=== PATIENT | male | born 1960 | race Caucasian/White ===

== ENCOUNTER 2023-05-19 12:46 | Outpatient (AMB) | payer MEDICARE, MEDICAID, SELFPAY ==
--- NOTE | 2023-05-19 13:01 | HO.SPINEOV ---
Intake Intake Visit Reasons: low back pain Intake Note: Mr. Khan is here today c/o low back pain. MRI done @ [facility]/brought disc. 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 He is a pleasant 62-year-old male, who presents for symmetric / bilateral leg pain accompanied by numbness, tingling, and burning originating in his low back, wrapping around his anterior thigh, continuing over the knee and terminating on the anterior tibialias, sparing the feet. He states that he injured his back when he was in the [place] 20 years ago, and reports low-grade pain up until the last several years where his pain and radicular symptoms have began limiting activity. He reports he has tried Tylenol, ibuprofen, healthcare business analyst, cortisone injections, exercise and stretching with minimal relief. He reports that walking for extended periods of time, bending over and lifting, and nearly all forms of manual labor exacerbate his symptoms. He is established at [facility] for pain management, and has scheduled cortisone injections at the end of this month. PMH: Rheumatoid arthritis, neuropathy, depression. Social hx: Patient smokes 1/2 pack cigarettes daily. No disclosed substance use. Medications: folic acid, omeprazole. Allergies: NKDA Physical exam: CN II-XII grossly intact. Strength is full and symmetric 5/5 in bilateral upper and lower extremities. Sensation is grossly intact. Reflexes 2+ intact in upper and lower extremities. Babinski negative, straight leg raise negative. Patient is able to perform spine flexion, extension, lateral rotation but has reduced mobility and does elicit pain when performing these actions. He also endorses a dull aching pain when standing walking. Imaging review: Imaging reviewed with Dr. Carter. MRI shows lumbar degenerative scoliosis with apex at L3-4. Severe degenerative multilevel disc disease from L3-S1. Multilevel severe foraminal stenosis, moderate central canal stenosis. Standing x-rays show that decreased lordosis and confirms the MRI findings. Impression: The patient is a 62-year-old male with a chief complaint of low back pain and radicular symptoms in an L3-4 distribution. He states that he is at the point where he feels severely restricted, and is unable to accomplish many of the things which give him purpose. After reviewing the imaging Dr. Carter offered him an OLIF L3-S1 to minimally invasively correct the scoliosis and to indirectly decompress the nerve structures. We discussed risks/benefits, and the patient was agreeable to this plan. We will need to coordinate with vascular surgery and schedule him for surgical date. Thank you for allowing us to care for your patient. The total time spent with this visit with this patient was 65 minutes reviewing history, physical exam, MRI / X-ray imaging review, scheduling surgical dates / coordination, and implementation of treatment plan or further diagnostic testing. Darin Carter MD,PhD [facility] Orders: Orders XR lumbar spine 4V min Today M54.16 - Radiculopathy, lumbar region Coding Level of Care Code New Pt Level 5 (37579) Diagnoses Lumbar radiculopathy M54.16 Time Spent (min) 65
== END 2023-05-19 14:30 | disposition home or self-care (01) ==
PROVIDERS: PCP Internal Medicine; Referring Provider Physical Medicine & Rehabilitation; Visit Provider Neurological Surgery
DX: M54.16 Radiculopathy, lumbar region (principal)
CPT/HCPCS: 99205

== ENCOUNTER 2023-05-19 12:46 | Outpatient (REF) | payer MEDICARE, MEDICAID, SELFPAY ==
--- NOTE | ~2023-05-19 | XR_ITS ---
EXAMINATION: XR LUMBOSACRAL SPINE WITH FLEXION AND EXTENSION VIEWS CLINICAL INFORMATION: Radiculopathy, lumbar region COMPARISON: None available. TECHNIQUE: AP, lateral and lateral flexion and extension views were obtained FINDINGS: There is mild curve of the lumbar spine, convex left. There are 5 nonrib-bearing lumbar-type vertebral bodies. There is slight right lateral compression of the L3 vertebral body. There is marked disc space narrowing with vacuum phenomenon at L2-L3 and L5-S1. There is also marked disc space narrowing at L3-L4 and L4-L5. Marginal osteophytes are seen throughout L2-L5. There is a large right lateral marginal osteophyte at L2-L3. There is multilevel degenerative facet joint disease, most notable at L4-L5 and L5-S1. There is loss of the usual lumbar lordosis which can be seen with muscle spasm. There is no spondylolisthesis. There is very limited flexion and extension. There is no change in alignment with flexion and extension. Partial visualization of bilateral total hip replacements. XR/XR lumbar spine 4V min IMPRESSION: 1. Muscle spasm. 2. Severe multilevel degenerative disc disease and degenerative facet joint disease. 3. No evidence of instability with flexion and extension. 4. Mild curve of the lumbar spine, convex left.
== END 2023-05-19 12:47 | disposition home or self-care (01) ==
LOC: HO.HOSX 12:46
PROVIDERS: PCP Internal Medicine; Visit Provider Neurological Surgery
DX: M54.16 Radiculopathy, lumbar region (principal)
CPT/HCPCS: 72110; 99202

== ENCOUNTER 2023-09-20 06:04 | Inpatient (IN) | payer MEDICARE, MEDICAID, SELFPAY ==
--- NOTE | 2023-09-08 | ECG_ITS ---
Test Reason : preop Blood Pressure : / mmHG Vent. Rate : 057 BPM Atrial Rate : 057 BPM P-R Int : 136 ms QRS Dur : 096 ms QT Int : 424 ms P-R-T Axes : 060 038 057 degrees QTc Int : 412 ms Sinus bradycardia Otherwise normal ECG No previous ECGs available Referred By: Serena Arroyo Electronically Signed By:JOAN VAZQUEZ MD
[2023-09-08 12:09] VITALS: BP 137/75; PULSE 58; RESP 18; O2SAT 98; BMI 26.0
[2023-09-08 13:24] LABS: Hematocrit 42.6 % (42.0-52.0); Hemoglobin 14.3 g/dl (14.0-18.0); Mean Corpuscular HGB Conc 33.6 g/dl (31.0-36.0); Mean Corpuscular Hemoglobin 28.9 pg (27.0-33.0); Mean Corpuscular Volume 86.1 fL (80.0-98.0); Mean Platelet Volume 9.4 fL (9.4-12.4); Platelet Count 277 X10*3/uL (160-400); Red Blood Count 4.95 X10*6/uL (4.60-5.80); Red Cell Distribution Width 12.8 % (11.0-16.0); White Blood Count 5.3 X10*3/uL (4.8-10.8)
[2023-09-08 13:56] LABS: Anion Gap 9 (12-20); Blood Urea Nitrogen 12 mg/dL (9-16); Calcium 9.1 mg/dL (8.4-10.2); Carbon Dioxide 30 mmol/L (22-29); Chloride 104 mmol/L (96-108); Creatinine Clr Calc Pharmacy 83.9; Estimated Glomerular Filt Rate > 60; Glucose Random 83 mg/dL (60-115); Potassium 3.6 mmol/L (3.3-5.1); Sodium 139 mmol/L (135-145)
[2023-09-20] VITALS (22 sets, daily range): BP systolic 118–154; BP diastolic 67–104; PULSE 54–86; RESP 10–20; TEMP 36.7–37.2; O2SAT 91–99; BMI 26.3
--- NOTE | ~2023-09-20 | FL_ITS ---
EXAMINATION: Intraoperative fluoroscopy CLINICAL INFORMATION: L3-S1 fusion COMPARISON: Lumbar spine x-rays May 19, 2023 TECHNIQUE: Intraoperative fluoroscopy was provided for use by Dr. Carter. A total of 9 images were saved to PACS. A radiologist was not present during imaging. Today's dictation is only for administrative purposes to document intraoperative fluoroscopic usage. TOTAL FLUOROSCOPIC TIME: 3 minutes and 30 seconds DAP: 412 mGy-cm FL/FL guidance in OR FINDINGS~\^^ Intraoperative fluoroscopy provided for use by Dr. Carter. Please see operative note for detailed findings.
[2023-09-20] MEDS: Gabapentin 300 MG CAPSULE PO (06:25)
[2023-09-20] MEDS: methocarbamoL 750 MG TABLET PO (06:25)
[2023-09-20] MEDS: Lactated Ringers 1,000 ML 100 ML IVCONT (06:33)
--- NOTE | 2023-09-20 07:15 | HO.ANESPROP2 ---
Documented by User: Serena Arroyo NP 09/17/23 08:52 HPI - Anesthesia Eval Consult details Narrative: 62yo M for L3-4, L4-5,L5-S1 Oblique Lumbar Interbody Fusion No recent illness No CP/SOB with minimal acitivity r/t back pain. Able to do some raking, grocery shopping Smoker. Down to 5 cigs/day GERD. Controlled with prn ppi. PMFSH Active Problems Active Problems: All Active Problems (Updated 09/08/23 @ 12:04 by Aubree Magallon RN) Lumbar radiculopathy (Acute) Past Medical History Medical History Arthritis Anemia GERD (gastroesophageal reflux disease) Smoking history Depression Rheumatoid arthritis Degenerative disc disease, lumbar Lumbar spinal stenosis Myalgia Lumbar radiculopathy Family History Family history of problems with anesthesia: No Surgical History Surgical History History of esophagogastroduodenoscopy (EGD) H/O colonoscopy Hx of bilateral hip replacements History of Problems with Anesthesia: No Social History Social History (Updated 09/07/23 @ 10:36 by Aubree Magallon RN) Are you a primary child adolescent care to a significant other at home: No Do you presently have visiting nurse or other home services: No Patient Tobacco Use Status: Current everyday Tobacco user Tobacco use type: Cigarette Cigarettes Per Day: 5 Years Smoked: 52 Use of substances other than those prescribed or required for medical reasons: No Have you been hit, kicked, punched, or otherwise hurt by someone within the past year? If so, by whom?: No Are you DNR?: No Advance Directives Information Provided: Yes (brochure given) Advance Directives on File: No Recently lost weight without trying: No Eating poorly because of decreased appetite: No Nutrition Risks: No Nutritional Risk Poor oral hygiene: Yes (full upper & lower dentures) Meds Allergies Allergy/AdvReac Type Severity Reaction Status Date / Time No Known Allergies Allergy Verified 09/20/23 06:12 Home Medications Medication Instructions Recorded Confirmed Last Taken Type acetaminophen 500 mg tablet 1,000 mg PO QID PRN Pain 09/08/23 09/08/23 Unknown History ascorbic acid (vitamin C) 500 mg 500 mg PO DAILY 09/08/23 09/08/23 09/06/23 History tablet (Vitamin C) ferrous sulfate 325 mg (65 mg 325 mg PO DAILY 09/08/23 09/08/23 09/06/23 History iron) tablet multivitamin 1 tab PO DAILY 09/08/23 09/08/23 09/06/23 History omeprazole 20 mg capsule,delayed 20 mg PO DAILY PRN Acid Reflux 09/08/23 09/08/23 09/20/23 05:00 History release tadalafil 5 mg tablet 5 mg PO DAILY PRN Erectile 09/08/23 09/08/23 Unknown History Dysfunction vitamin B complex 1 tab PO DAILY 09/08/23 09/08/23 09/06/23 History Exam Height,Weight and Vital Signs: Height 5 ft 8 in Weight 77.428 kg Last Vital Signs Pulse 58 09/08/23 12:09 Resp 18 09/08/23 12:09 BP 137/75 09/08/23 12:09 Pulse Ox 98 09/08/23 12:09 O2 Del Method Room Air 09/08/23 12:09 Pertinent Lab Results Pertinent Lab Results: Lab Results 09/08/23 09/08/23 09/08/23 Range/Units 12:22 12:58 Unknown WBC 5.3 (4.8-10.8) X10*3/uL RBC 4.95 (4.60-5.80) X10*6/uL Hgb 14.3 (14.0-18.0) g/dl Hct 42.6 (42.0-52.0) % MCV 86.1 (80.0-98.0) fL MCH 28.9 (27.0-33.0) pg MCHC 33.6 (31.0-36.0) g/dl RDW 12.8 (11.0-16.0) % Plt Count 277 (160-400) X10*3/uL MPV 9.4 (9.4-12.4) fL Absolute Nucleated RBC 0.000 (0.0-0.012) X10*3/uL Nucleated RBC % (auto) 0.0 (0.0-0.2) /100WBC Sodium 139 (135-145) mmol/L Potassium 3.6 (3.3-5.1) mmol/L Chloride 104 (96-108) mmol/L Carbon Dioxide 30 H (22-29) mmol/L Anion Gap 9 L (12-20) BUN 12 (9-16) mg/dL Creatinine 0.86 (0.5-1.4) mg/dL Estim Creat Clear Calc 83.9 Estimated GFR > 60 Random Glucose 83 (60-115) mg/dL Calcium 9.1 (8.4-10.2) mg/dL Blood Type B Positive Antibody Screen NEGATIVE Narrative Narrative: EKG 06/2023 Vent. Rate : 057 BPM Atrial Rate : 057 BPM P-R Int : 136 ms QRS Dur : 096 ms QT Int : 424 ms P-R-T Axes : 060 038 057 degrees QTc Int : 412 ms Sinus bradycardia Otherwise normal ECG No previous ECGs available Airway Mallampati Class: II TM Dist: >3cm Neck ROM: Full Denture: Upper and Lower Heart: RRR Lungs: CTAB Assessment and Plan Assessment Anesthesia Assessment: Anesthesia Plan Discussed, Smoking Cess. Discussed and PAT Visit Final Anesthetic Review Family History of Problems with Anesthesia: No History of Problems with Anesthesia: No Documented by User: Piedad Crowley DO 09/20/23 07:20 [facility] Past Medical History Medical History Arthritis Anemia GERD (gastroesophageal reflux disease) Smoking history Depression Rheumatoid arthritis Degenerative disc disease, lumbar Lumbar spinal stenosis Myalgia Lumbar radiculopathy Family History Family history of problems with anesthesia: No Surgical History Surgical History History of esophagogastroduodenoscopy (EGD) H/O colonoscopy Hx of bilateral hip replacements History of Problems with Anesthesia: No Social History Social History (Updated 09/07/23 @ 10:36 by Aubree Magallon RN) Are you a primary child adolescent care to a significant other at home: No Do you presently have visiting nurse or other home services: No Patient Tobacco Use Status: Current everyday Tobacco user Tobacco use type: Cigarette Cigarettes Per Day: 5 Years Smoked: 52 Use of substances other than those prescribed or required for medical reasons: No Have you been hit, kicked, punched, or otherwise hurt by someone within the past year? If so, by whom?: No Are you DNR?: No Advance Directives Information Provided: Yes (brochure given) Advance Directives on File: No Recently lost weight without trying: No Eating poorly because of decreased appetite: No Nutrition Risks: No Nutritional Risk Poor oral hygiene: Yes (full upper & lower dentures) Meds Allergies Allergy/AdvReac Type Severity Reaction Status Date / Time No Known Allergies Allergy Verified 09/20/23 06:12 Home Medications Medication Instructions Recorded Confirmed Last Taken Type acetaminophen 500 mg tablet 1,000 mg PO QID PRN Pain 09/08/23 09/08/23 Unknown History ascorbic acid (vitamin C) 500 mg 500 mg PO DAILY 09/08/23 09/08/23 09/06/23 History tablet (Vitamin C) ferrous sulfate 325 mg (65 mg 325 mg PO DAILY 09/08/23 09/08/23 09/06/23 History iron) tablet multivitamin 1 tab PO DAILY 09/08/23 09/08/23 09/06/23 History omeprazole 20 mg capsule,delayed 20 mg PO DAILY PRN Acid Reflux 09/08/23 09/08/23 09/20/23 05:00 History release tadalafil 5 mg tablet 5 mg PO DAILY PRN Erectile 09/08/23 09/08/23 Unknown History Dysfunction vitamin B complex 1 tab PO DAILY 09/08/23 09/08/23 09/06/23 History Exam Exam Date and Time: September 20, 2023 0715 Height,Weight and Vital Signs: Height 5 ft 8 in Weight 77.428 kg Last Vital Signs Pulse 58 09/08/23 12:09 Resp 18 09/08/23 12:09 BP 137/75 09/08/23 12:09 Pulse Ox 98 09/08/23 12:09 O2 Del Method Room Air 09/08/23 12:09 Vital Signs Pulse Rate 58 09/08/23 12:09 Respiratory Rate 18 09/08/23 12:09 Blood Pressure 137/75 09/08/23 12:09 Pulse Oximetry 98 09/08/23 12:09 Oxygen Delivery Method Room Air 09/08/23 12:09 Temperature 98.7 F 09/20/23 06:27 Pulse Rate 54 09/20/23 06:27 Respiratory Rate 16 09/20/23 06:27 Blood Pressure 118/67 09/20/23 06:27 Pulse Oximetry 97 09/20/23 06:27 Oxygen Delivery Method Room Air 09/20/23 06:27 Height 5 ft 8 in Weight 78.381 kg Airway Mallampati Class: II TM Dist: >3cm Neck ROM: Full Denture: Upper and Lower Heart: S1S2 Assessment and Plan Assessment Anesthesia Assessment: Anesthesia Plan Discussed and Chart Reviewed Final Anesthetic Review Family History of Problems with Anesthesia: No History of Problems with Anesthesia: No NPO: Yes ASA Class: II Final Preanesthetic Review: No Changes in Pt Med Stat, Meds/Allgs Chart Reviewed, Consent Obtained/Reviewed and Anes Risks/Benef Reviewed Patient Risk: Low Procedure Risk: Low Anesthetic Plan Anesthetic Plan: GA and Agree w/ Assess. and Plan Disposition: Standard PACU
--- NOTE | 2023-09-20 07:25 | PHA.MEDREC ---
Pharmacy Consult ? Medication Reconciliation Pharmacy has completed the medication reconciliation. PHARMACY HAS REVIEWED THE MED REC DONE BY NURSING
--- NOTE | 2023-09-20 07:40 | MHC.SHP ---
Pre-Procedural Eval Section A Date of Service: 09/20/23 The patient is an INPATIENT: No Changes since office visit: No Cold of Flu in the past 2 weeks, No New Medical Problems, No Changes in Medication and No Patient answered all questions The History & Physical has been completed within 30 days and I have reviewed it.: No Section B Chief Complaint: S/P L3-S1 OLIF Allergies: Allergies Allergy/AdvReac Type Severity Reaction Status Date / Time No Known Allergies Allergy Verified 09/20/23 06:12 Review of Systems Sugical H&P ROS: Negative: Constitution, Cardiovascular, Respiratory, Neurological, Psychiatric, Hem-Onc, Allergic/Immunologic, Gastrointestinal, Genitourinary, Musculoskeletal, Integumentary, Endocrine and Eyes/Ears/Nose/Throat Exam Surgical H&P Exam: Not Evaluated: HEENT, Not Evaluated: Heart, Not Evaluated: Lungs, Not Evaluated: Extremities, Not Evaluated: Abdomen, Not Evaluated: Skin and Not Evaluated: Neurological Plan Diagnosis/Plan: Unchanged I have reviewed the history and physical and performed a pertinent physical examination on my patient. No changes have occurred unless specified. L3-S1 Oblique lumbar interbody fusion Time Spent With Patient Time: Total time managing care of this patient today __13__ minutes.
--- NOTE | 2023-09-20 10:55 | W.PM.OPN ---
Operative Note Operative Note Date of Service: 09/20/23 Narrative: Procedure: Anterior-lateral exposure for Oblique interbody fusion At L3-S1 levels. After adequate general anesthesia was administered Glover catheter was inserted under sterile conditions. Patient was placed in a lateral position with the left side up and all the body prominence were padded. C- arm imaging was obtained in AP and lateral directions and projections of the anterior vertebral surface and disk spaces were marked on the skin. Abdomen and left flank were prepped and time-out was done. Incision was made in oblique direction 3 cm medial to the left ASIS 7 cm long. External oblique aponeurosis was opened along its fibers to the extent of the incision and transverse and internal muscled bluntly. Arm retractor was used for the exposure. Left ureter was identified and protected. Left common iliac vein was dissected on the medial edge and middle sacral vessels were divided between the clips. The vein was bluntly dissected from the L5-S1 disc space and it was cleared. Disk level was confirmed with lateral C-arm image and mid-line was marked using AP projection. Dr. Carter then proceeded with discectomy and fusion with the cage at L5-S1 level. Once that was completed hemostasis was checked as well as the ureter's position. Retractor was removed and fascia was open superiorly accross L4-L5 disc level. Discectomy and fusion was then performed at this level by Dr. Carter. This was repeated for L3-L4 level. After these were completed the local field block was done with a diluted anesthetic mixture. Vicryl stitches were used to approximate the muscles and 0- Maxone for external oblique. Subcutaneous and subcuticular closure was done and Exofin glue was usedwith a steri-strip. Account was correct. EBL was less than 10cc. There were no immediate complications.
[2023-09-20] MEDS: HYDROmorphone HCl 0.5 MG/0.5 ML SYRINGE IVPUSH ×4 (13:56→14:47)
--- NOTE | 2023-09-20 14:32 | W.PM.OPN ---
Operative Note Operative Note Date of Service: 09/20/23 Narrative: Preop Diagnosis: 1.) multilevel lumbar degenerative disc disease; back pain Procedure: L3-4, L4-5 and L5-S1 discectomy, arthrodesis and implantation cage through an anterolateral, retroperitoneal approach; posterior instrumented fusion L3-S1; allograft Consent Informed Consent was obtained for this operation. I have explained the nature, purpose and benefits of the operation. I have discussed the risks and benefit of the operation including possible complications or adverse events with patient/family. Alternative(s) were discussed with the patient with their relative benefits and risks as well as the consequences of not accepting the operation were included in obtaining consent. Surgeon: GIOVANNA REES MD, PHD Procedure Assisted By: William Sumner MD Description of Procedure this 62-year-old male is suffering from intractable low back pain. MRI shows severe lumbar degenerative disc disease L3-4, L4-5 and L5-S1 and an auto fusion at L2-L3.The patient was offered an oblique lumbar interbody fusion L3-4, L4-5 and L5-S1. The procedure complications were explained. The patient was consented. The patient was brought to the operating room and endotracheally intubated. The patient was turned in a lateral position with the left side up. Prep and drape was done followed by timeout. A 2 inch incision was made in the left lower abdominal quadrant.Dr. Sumner provided access to the L5-S1 disc space . He will dictate the approach in a separate report. I took over the procedure. An Montaño eleavotor was used to into the disc space towards the posterior border of the L5-S1 vertebral bodies. A thorough diskectomy wasdone followed by endplate preparation. sequential trial implants with a diameter of 8 mm and 10 mm were inserted. Finally a 24 x 36 x 10 mm height and 12 degree lordosis 4 web cage was inserted filled with allograft under fluoroscopic guidance. Then attention was turned to the L4-5 disc space. The muscle fascia was opened after which the 3 muscle layer was split to enter the retroperitoneal space. Dilators were docked in the anterior one third of the L4-5 disc space followed by a retractor. The retractor was opened. The L4-5 disc space was exposed. An annulotomy was done after which an elevator Montaño was used to release the disc material from its endplates and to perforate the contralateral side. A partial discectomy was done. An 8 mm and 10 mm height trial implants were inserted. The discectomy was completed. The endplates were prepared. An 18 x 50 x 10 mm with 0 degree lordosis 4 web cage filled with allograft was inserted into the disc space under fluoroscopic guidance. This resulted in rastafarian of disc height. the retractor was moved to the L3-4 disc space where a similar procedure was done. When the disc space was prepared an 18 x 50 x 10 mm height and 0 degree lordosis cage filled with allograft was inserted into the disc space. Final x-rays in AP and lateral projection showed good position of the interbody devices.The retractor was removed. Hemostasis was done. The incision was closed by Dr. Sumner. This marked first part of the procedure. The patient was turned prone on the Miguel spine table. 2C arms were installed for fluoroscopy. Prep and drape was done followed by a second timeout. A paramedian incisions were made lateral from the right L3 pedicle. The muscle fascia was opened after which the muscle layer was split bluntly to expose the posterolateral gutter. The following steps were taken. A pediguard tap was used to create a transpedicular trajectory into the vertebral body. A K wire was placed. A specially designed instrument was advanced over the K wire to decorticate the posterolateral gutter in preparation for the posterolateral fusion. A pedicle screw was advanced over the K wire and the K wire was removed. The steps were done for the bilateral L3, L4, L5 and S1 pedicles. A total of a true screws were placed with a diameter of 6.5 x 45 mm in the bilateral L3 and L4 pedicles. a 6.5 x 40 mm in the right S1 pedicle. a 7.5 x 40 mm in the left L5 and S1 pedicles. The pedicle screws were connected with 100 mm todd bilaterally and locked down with locking caps. The extension towers were removed. The posterolateral gutter was filled with allograft to complete the posterolateral L3-I1mwwgry. final x-rays were taken that showed that the left L5 pedicle broke out laterally. Intraoperatively, I had great difficulty placing the left L5 pedicle screw with multiple attempts. To revise a disc screw would have meant removal of all the previous placed screws on the left side is the extension towers were already removed with the risk that I still was not able to place the L5 pedicle screw. The other 7 screws had great purchase and therefore I decided to avoid a revision.Hemostasis was done and the incision was closed in 2 layers. Steri-Strips were used to approximate the incision. An OpSite were taken and was used to cover the incision. All sponge and needle counts were correct. Patient was extubated and transferred in stable is to recovery room. Anesthesia: General Estimated Blood Loss (ml): 80 mL Duration of Surgery: 5 hours Complications: None Postoperative Plan: Admit to inpatient for observation
[2023-09-20] MEDS: oxyCODONE HCl Immed Release 5 MG TABLET 10 MG PO ×2 (14:45→16:17)
[2023-09-20] MEDS: Acetaminophen 1,000 MG/100 ML PIGGYBACK 400 MG IV ×2 (14:54→19:47)
[2023-09-20] MEDS: Cyclobenzaprine HCl 5 MG TABLET PO (16:17)
[2023-09-20] MEDS: 0.9 % Sodium Chloride 1,000 ML 75 ML IVCONT (16:17)
[2023-09-20] MEDS: ceFAZolin Sodium/Dextrose,Iso 2 GM/50 ML PIGGYBACK IV (17:04)
[2023-09-20] MEDS: HYDROmorphone HCl 1 MG/ML SYRINGE IVPUSH ×2 (18:12→21:25)
[2023-09-20] MEDS: ondansetron HCL 4 MG/2 ML VIAL IVPUSH (19:33)
[2023-09-20] MEDS: Ketorolac Tromethamine 15 MG/ML VIAL IVPUSH (19:44)
[2023-09-21] VITALS (7 sets, daily range): BP systolic 130–159; BP diastolic 60–79; PULSE 68–86; RESP 18–20; TEMP 36.4–37.9; O2SAT 93–98
[2023-09-21] MEDS: Ketorolac Tromethamine 15 MG/ML VIAL IVPUSH ×4 (00:45→19:56)
[2023-09-21] MEDS: ceFAZolin Sodium/Dextrose,Iso 2 GM/50 ML PIGGYBACK IV ×2 (00:49→05:36)
[2023-09-21] MEDS: Acetaminophen 1,000 MG/100 ML PIGGYBACK 400 MG IV ×4 (01:31→20:00)
[2023-09-21] MEDS: HYDROmorphone HCl 1 MG/ML SYRINGE IVPUSH ×5 (03:58→17:14)
[2023-09-21] MEDS: 0.9 % Sodium Chloride 1,000 ML 75 ML IVCONT ×3 (04:02→19:54)
--- NOTE | 2023-09-21 06:44 | HO.POSTANES ---
Post Anesthesia Evaluation Post Anesthesia Evaluation Date of Service: 09/21/23 Vital Signs: Vital Signs Temp Pulse Resp BP Pulse Ox O2 Del Method 09/21/23 04:00 98.3 F 74 18 130/60 97 Room Air 09/20/23 19:41 98.3 F 74 20 154/72 H 96 Room Air Anesthesia: General Endotracheal-GETA Mental Status: Awake Pain Control: Satisfactory (struggled with pain throughout the night) Nausea/Vomiting: None Hydration: Adequate Anesthesia-Related Issues: No Anes. Related Issues
[2023-09-21] MEDS: oxyCODONE HCl Immed Release 5 MG TABLET 10 MG PO ×5 (07:31→23:25)
[2023-09-21] MEDS: Docusate Sodium 100 MG CAPSULE PO ×2 (07:53→20:02)
[2023-09-21] MEDS: Ascorbic Acid 500 MG TABLET PO (07:54)
[2023-09-21] MEDS: Multivitamin TABLET 1 TAB PO (07:54)
[2023-09-21] MEDS: Ferrous Sulfate 324 MG TABLET.DR PO (07:54)
--- NOTE | 2023-09-21 08:57 | HO.NEURO.PN ---
Neurosurgery Operative Note Date of Service: 09/21/23 Narrative: Postoperative day 1 L3-S1 minimally invasive oblique lumbar interbody fusion Patient reports significant amount of back pain, the IV Dilaudid is not helping much but the oxycodone seems to be giving him some relief. He remains on Toradol and IV Tylenol. The patient denies any radicular symptoms down the legs. He has been getting up and walking to the bathroom. The patient is voiding without problems. He is tolerating his diet without issues. Afebrile, vital signs stable Physical exam: Patient is awake alert oriented no acute distress he has full strength to bilateral lower extremities, some guarding with movement of his left iliopsoas secondary to pain. Left lower quadrant incision is clean and dry. abdomen is soft nondistended nontender no signs of rebound tenderness or guarding, back dressings have small amount of staining but no signs of hematoma. Impression: Postop day 1. L3-S1 minimally invasive oblique lumbar interbody fusion, patient experiencing back pain as expected, we emphasize that using the oxycodone over the Dilaudid would be a good idea. We will continue him on IV Tylenol and IV Toradol. The patient will get out of bed with PT. He is voiding okay and tolerating a diet. I do not expect to be able to go home today, more likely tomorrow. Patient seen at bedside with Dr. Carter.
--- NOTE | 2023-09-21 09:53 | MHC.CM.PN ---
Addendum entered by Zahida Rae RN 09/21/23 10:26: PT REC HOME W/ FAMILY SUPPORT Original Note: IMM 09/21. FROM HOME WITH , INDEPENDENT, NO SERVICES. PCP: FABIOLA FOX MD HCP: EDUCATION PROVIDED, DECLINED TO COMPLETE AT THIS TIME. DCP: PENDING PT EVAL. GOAL IS HOME SELF CARE. TO TRANSPORT. CM WILL CONTINUE TO FOLLOW.
[2023-09-21] MEDS: Cyclobenzaprine HCl 5 MG TABLET PO ×2 (10:42→23:24)
--- NOTE | 2023-09-21 18:27 | PC.NURSE ---
Pt this am crying out in pain per pt 20/10 pain in back. c/o pain to back traveling down spine also to left leg surgical site. Dressings with bloody staining to back Surgeon at bedside aware. Pt medicated with IV dilaudid Q3, 10 mg PO oxycodone every 4 hours as well as scheduled tylenol and toradol with effect as well as flexeril prn. Pt with improvement throughout shift. Tolerating pain meds without difficulty. A&OX4. CORTEZ to command 5/5 although unable to life LLE up d/t pain, +pp bilat no edema noted. Strong plantar/dorsi flexion. Denies numbness/tingling. LSCTA denies SOB or CP. BS+X4 abdomen soft non-tender denies nausea/vomiting. IV fluids infusing per order. Voiding without difficulty PVR this am 136. OOB to chair during shift seen by PT. Will continue to monitor and report changes
[2023-09-22] MEDS: HYDROmorphone HCl 1 MG/ML SYRINGE IVPUSH ×2 (01:01→07:34)
[2023-09-22] MEDS: Ketorolac Tromethamine 15 MG/ML VIAL IVPUSH ×2 (01:04→07:33)
[2023-09-22] MEDS: Acetaminophen 1,000 MG/100 ML PIGGYBACK 400 MG IV ×2 (01:07→07:32)
[2023-09-22 03:34] VITALS: BP 142/68; PULSE 68; RESP 17; TEMP 36.9; O2SAT 94
[2023-09-22] MEDS: oxyCODONE HCl Immed Release 5 MG TABLET 10 MG PO ×2 (05:41→09:25)
[2023-09-22] MEDS: Ascorbic Acid 500 MG TABLET PO (07:33)
[2023-09-22] MEDS: Ferrous Sulfate 324 MG TABLET.DR PO (07:33)
[2023-09-22] MEDS: Multivitamin TABLET 1 TAB PO (07:33)
[2023-09-22] MEDS: Docusate Sodium 100 MG CAPSULE PO (07:34)
[2023-09-22 07:50] VITALS: BP 166/82; PULSE 73; RESP 16; TEMP 36.8; O2SAT 94
--- NOTE | 2023-09-22 09:01 | PM.DS ---
DS: Providers Provider Date of Service: 09/22/23 Date of admission: 09/20/23 06:04 Primary care physician: Sera Nazario MD DS: Summary Time Attestation Discharge coordination time: Less than 30 minutes Quality: Safe Use of Opioids Does Pt have an Active Cancer Diagnosis on the Problem List?: No Quality: Stroke Does the patient have a stroke diagnosis?: No Physical Exam Vital Signs: Vital Signs: Last Vital Signs Temp 98.3 F 09/22/23 07:50 Pulse 73 09/22/23 07:50 Resp 16 09/22/23 07:50 BP 166/82 H 09/22/23 07:50 Pulse Ox 94 09/22/23 07:50 O2 Del Method Room Air 09/22/23 07:50 O2 Flow Rate 3.0 09/20/23 16:00 BMI result Body Mass Index 26.3 Discharge Plan Discharge Anticipated Discharge Date/Time: 09/22/23 09:03 Patient Disposition: Home, Self-Care Discharge Diagnosis: s/p L3-S1 OLIF Referrals: Sera Nazario MD [Primary Care Provider] - 1 Week Discharge Medications: New oxycodone 5 mg tablet 5 mg PO Q6H PRN (Reason: severe pain (scale score 7-10)) Qty: 30 0RF Rx Instructions: Partial Fill upon patient request. Continued multivitamin Tablet 1 tab PO DAILY ferrous sulfate 325 mg (65 mg iron) tablet 325 mg PO DAILY omeprazole 20 mg Capsule,Delayed Release(Dr/Ec) 20 mg PO DAILY@0630 PRN (Reason: Acid Reflux) tadalafil 5 mg Tablet 5 mg PO DAILY PRN (Reason: Erectile Dysfunction) Rx Instructions: administer approximately 30min before sexual activity; do not use more than 1 dose per 24hrs acetaminophen 500 mg Tablet 1,000 mg PO QID PRN (Reason: Pain) ascorbic acid (vitamin C) [Vitamin C] 500 mg Tablet 500 mg PO DAILY vitamin B complex Tablet 1 tab PO DAILY Discharge Orders: Discharge Order (Routine); Ordered 09/22/23 Ordered By: Darin Garcia Diet: Advance to usual diet Activity on Discharge: As tolerated Stand Alone Forms: Patient Portal Discharge page Activity Restrictions/Additional Instructions: After your spinal surgery we ask you to observe the following restrictions/guidelines: Activity: With lumbar fusion surgery it is normal to have days in the first couple of weeks where you have increased leg pain. This usually lasts 1-2 days and self resolves with the continuation of medication. Attempt to stay mobile and continue activity as tolerated. It is normal to feel some discomfort as you increase your activity, but that will improve with time. We ask you avoid heavy lifting or activities that cause pain. As a general rule, 8lbs is a safe limit for lifting right after surgery. Walk as much as you feel comfortable but not to exhaustion. You will feel extra tired the first few days after surgery. Stay well hydrated. It is OK to walk up and down stairs You may return to driving when you are off narcotics (such as vicodin, oxycodone, dilaudid, etc), and you are back to normal functional capacity. If you have any concerns please check with office before driving. Return to work is specific to each patient and each surgery, so please speak with your doctor/PA at first follow up. Please bring paperwork such as FMLA at that time if you need it filled out. Medications: It is recommended that you take Tylenol 500 mg every 4 hours for the 1st week postoperatively, alongside ibuprofen 600 mg every 8 hours. We will give you a short supply of narcotics after surgery (usually one weeks worth). Please use this for breakthrough pain that is refractory to the Tylenol / ibuprofen. If you need more please call the office but do not use more than prescribed. You will need to give our office 48 hours notice if you need narcotics refilled and we do not fill narcotics on weekends or evenings. If you are on a narcotic, it is a good idea to take a stool softener such as colace or senna to avoid constipation If you take blood thinner such as aspirin, Plavix, Coumadin, Effient, Eliquis etc for conditions such as Afib, DVT, Pulmonary embolus, coronary disease, stents etc please speak with your surgeon about specific details as to when you can resume these medications. You can resume NSAIDs on post op day 1 (eg: Motrin, Naproxen, etc). Follow up: Please call the office, , after surgery to arrange a 3 week follow up for wound check. Wound Care: You may remove your dressing on the first day after surgery. You may leave open to air. Please do not remove the steri strips underneath. they will fall off on their own in one week. IT IS NORMAL FOR THE WOUND TO OOZE OR BE BLOODY FOR A FEW DAYS AFTER SURGERY. IF THIS HAPPENS JUST PLACE NEW DRESSING OVER IT TO AVOID STAINING CLOTHES. You may shower on post op day # 1 We ask that you do not let the water soak the wound. If it does get wet, just towel dry lightly. Please do not scrub your incision or place any type of chemical/ointment on the wound. No tub baths, pools or jacuzzis for one month. If you have any leaking or redness from your wound, or fevers, please call office Care Plan Goals: Return to normal activity as tolerated very Health Concerns: None. Plan of Treatment: Follow-up in office in 2-3 weeks. Assessment: POD: 2 Procedure: s/p L3-S1 OLIF Alex reports he is up walking around is otherwise doing well. He feels his symptoms are much better than pre-operatively. He still reports mild pain, with good relief with PO pain medication. He is voiding well (ambulating to the bathroom) and tolerating diet. He does report some weakness of his left iliopsoas which we have discussed and he understands likely due to the approach of surgery. We expect this to self resolve soon. Afebrile, vital signs stable. Full strength 5/5 LE. No neurological deficits. Back dressings have some staining without signs of hematoma. No active sanguineous drainage. Area is dry. Plan: Patient meets criteria to be medically discharged home. The attending neurosurgeon Dr. Carter agrees to this plan. Darin Carter MD,PhD [facility]
[2023-09-22 09:08] VITALS: BP 166/82; PULSE 73; O2SAT 94
--- NOTE | 2023-09-22 09:12 | HO.NEUROPN_ITS ---
Neurosurgery Operative Note Date of Service: 09/22/23 Narrative: POD: 2 Procedure: s/p L3-S1 OLIF Alex reports he is up walking around is otherwise doing well. He feels his symptoms are much better than pre-operatively. He still reports mild pain, with good relief with PO pain medication. He is voiding well (ambulating to the bathroom) and tolerating diet. He does report some weakness of his left iliopsoas which we have discussed and he understands likely due to the approach of surgery. We expect this to self resolve soon. Afebrile, vital signs stable. Full strength 5/5 LE. No neurological deficits. Back dressings have some staining without signs of hematoma. No active sanguineous drainage. Area is dry. Plan: Patient meets criteria to be medically discharged home. The attending neurosurgeon Dr. Carter agrees to this plan. Darin Carter MD,PhD [facility]
--- NOTE | 2023-09-22 09:51 | MHC.CM.PN ---
EMR REVIEWED. PT MEDICALLY CLEARED FOR DC. HOME, FAMILY SUPPORT. AT BEDSIDE TO TRANSPORT. AWAITING DELIVERY OF PRESCRIPTIONS FROM [facility]. RN AWARE.
== END 2023-09-22 11:14 | disposition home or self-care (01) | DRG 460 ==
LOC: HO.SSSA 06:06 → HO.S3 13:57
PROVIDERS: Nurse Practitioner; Admitting Provider Neurological Surgery; PCP Internal Medicine; Visit Provider Neurological Surgery
PROC: 0SG10A0 Fusion of 2 or more Lumbar Vertebral Joints with Interbody Fusion Device, Anterior Approach, Anterior Column, Open Approach (ICD-10-PCS; principal; 2023-09-20 07:30)
DX: M54.16 Radiculopathy, lumbar region (principal); K21.9 Gastro-esophageal reflux disease without esophagitis; F17.210 Nicotine dependence, cigarettes, uncomplicated; Z71.6 Tobacco abuse counseling; M06.9 Rheumatoid arthritis, unspecified; Z79.899 Other long term (current) drug therapy
CPT/HCPCS: 36415; 80048; 85027; 86850; 86900; 86901; 93005; 97116; 97161; 99024; C1713; C1758; J0131; J0690; J1100; J1170; J1885; J2250; J2405; J2704; J3010; L8699

== ENCOUNTER → 2023-09-20 06:04 | Outpatient (BNV) | payer MEDICARE, MEDICAID, SELFPAY | PROVIDERS: Admitting Provider Neurological Surgery; PCP Internal Medicine; Visit Provider Surgery | DX: M54.16 Radiculopathy, lumbar region (principal) | CPT/HCPCS: 20930; 22558; 22585; 22612; 22614; 22840; 22853; 99499 ==

== ENCOUNTER 2023-10-12 13:14 | Outpatient (REF) | payer MEDICARE, MEDICAID, SELFPAY | END 2023-10-12 13:15 | disposition home or self-care (01) | LOC: HO.HOSX 13:14 | PROVIDERS: PCP Internal Medicine; Visit Provider Physician Assistant | DX: M54.16 Radiculopathy, lumbar region (principal); Z98.1 Arthrodesis status | CPT/HCPCS: 72110; 99212 ==

== ENCOUNTER 2023-10-12 13:14 | Outpatient (AMB) | payer MEDICARE, MEDICAID, SELFPAY ==
--- NOTE | 2023-10-12 13:52 | HO.SPINEOV ---
Intake Intake Visit Reasons: 1st post op Allergies No Known Allergies Allergy (Verified 09/20/23 06:12) Assessment & Plan Assessment & Plan (1) S/P spinal fusion: Code(s): Z98.1 - Arthrodesis status Plan Procedure: L3-S1 OLIF with posterior instrumentation. lAex comes in today for his 1st postoperative visit. He reports he has had a difficult post-operative course and continues to experience significant low back pain with some shooting pains across his anterior left thigh. Of note his left side is where the OLIF incision was created. He states that he is still having some difficulty sleeping and is only able to get a few hours per night before waking up, drinking coffee, watching TV, and then attempting to nap again. He states he does have good symptom relief with oxycodone, but has intermittently been taking his gabapentin/Tylenol. We again discussed his medication regimen and he was encouraged to take Tylenol 1000 mg 3 times a day, alongside his 3 times a day gabapentin dosing. He was encouraged to utilizes oxycodone for pain that breaks through this regimen. Please review Dr. Carter's operative note for more detailed description of the surgery & percutaneous screw placement. I had the patient obtain a set of X-rays today which shows stable placement of his posterior instrumentation similar to that seen his intra-operative fluoroscopy. No new neurological deficits. Patient is able to ambulate well, rises from a seated position without difficulty. Lateral and posterior incision sites are closed, well healing, with no signs of drainage. We will follow-up with the patient in 6 weeks for his 2nd postoperative visit. At that time we will get x-rays to review with the patient. Orders: Orders XR lumbar spine 4V min 10/12/23 M54.16 - Radiculopathy, lumbar region Medications: Refilled oxycodone Partial Fill upon patient request. 5 mg PO Q6H PRN 30 tabs 0RF severe pain (scale score 7-10) Coding Level of Care Code Global (12903) Diagnoses S/P spinal fusion Z98.1
== END 2023-10-12 16:15 | disposition home or self-care (01) ==
PROVIDERS: PCP Internal Medicine; Visit Provider Physician Assistant
DX: Z98.1 Arthrodesis status (principal)
CPT/HCPCS: 99024

== ENCOUNTER 2023-11-23 12:57 | Outpatient (REF) | payer MEDICARE, MEDICAID, SELFPAY ==
--- NOTE | ~2023-11-23 | XR_ITS ---
EXAMINATION: XR LUMBOSACRAL SPINE WITH OBLIQUES CLINICAL INFORMATION: Lumbar radiculopathy. COMPARISON: Radiographs dated 10/12/2023. TECHNIQUE: AP and lateral (neutral, flexion and extension) views of the lumbosacral spine are submitted. FINDINGS: There is bony demineralization. There is a mild lumbar levoscoliosis. At L2-L3, there is moderately severe disc space narrowing, with endplate sclerosis. There has been a prior posterior fusion extending from L3 through S1, with intact posterior fixator rods, pedicular screws and disc spacers. No hardware failure or loosening is seen. There is no acute fracture or spondylolisthesis. There is multi-level lumbar spondylosis. There are aortoiliac atherosclerotic calcifications. XR/XR lumbar spine 4V min IMPRESSION: 1. There is moderately severe degenerative disc disease at L2-L3. 2. There has been a prior posterior fusion extending from L3 through S1. Alignment is stable, there is no hardware failure or loosening. 3. There is multi-level lumbar spondylosis. 4. There is a mild lumbar levoscoliosis.
== END 2023-11-23 12:58 | disposition home or self-care (01) ==
LOC: HO.HOSX 12:57
PROVIDERS: Visit Provider Physician Assistant
DX: M54.16 Radiculopathy, lumbar region (principal); Z98.1 Arthrodesis status
CPT/HCPCS: 72110; 99212

== ENCOUNTER 2023-11-23 14:51 | Outpatient (AMB) | payer MEDICARE, SELFPAY ==
--- NOTE | 2023-11-23 15:07 | MHC.OFFVIS ---
Intake Intake Visit Reasons: 2nd post op with xrays Intake Note: Pt here for his 2nd post op with Xrays [employer] Tender Required: No Allergies No Known Allergies Allergy (Verified 09/20/23 06:12) [facility] Medical History Arthritis Anemia GERD (gastroesophageal reflux disease) Smoking history Depression Rheumatoid arthritis Degenerative disc disease, lumbar Lumbar spinal stenosis Myalgia Lumbar radiculopathy Surgical History (Updated 11/23/23 @ 15:33 by EDIE Andrade) History of esophagogastroduodenoscopy (EGD) H/O colonoscopy Hx of bilateral hip replacements Social History (Updated 09/07/23 @ 10:36 by Aubree Magallon RN) Household Members: Spouse Housing: House Are you a primary ostomy care nurse to a significant other at home: No Do you presently have visiting nurse or other home services: No Comment: all counts correct Patient Tobacco Use Status: Current everyday Tobacco user Tobacco use type: Cigarette Cigarettes Per Day: 10 Years Smoked: 52 service: No Assessment & Plan Assessment & Plan (1) S/P spinal fusion: Code(s): Z98.1 - Arthrodesis status Plan Procedure: L3-S1 OLIF with posterior instrumentation. Alex comes in today for his 2nd postoperative visit. He reports he has had gradual decrease in his left lower extremity symptoms. He states that he has less persistent pain in his anterior left thigh, and less shooting symptoms down his left leg. He does report that is left lower extremity still bothers him, but feels as though it is not as bad as it previously was. He states he has been up walking around the assistance of cane. He has been trying to engage in light physical activity such as seated light weightlifting. He has been utilizing cannabis to help control his pain, and unfortunately has continued tobacco use. We discussed how these things can prolonged postoperative healing. He was strongly encouraged to begin setting a goal of walking as close to 1 mile per day as he can. I reviewed his x-ray imaging from today which shows stable placement of his posterior instrumentation with no movement. No neurological deficits. Patient is able to ambulate well, rises from a seated position without difficulty. Incision sites are closed, well healed, with no signs of drainage. We will follow-up with the patient in 8 weeks to continue evaluating symptom resolution. Darin Carter MD,PhD [facility] Orders: Orders XR lumbar spine 4V min Today M54.16 - Radiculopathy, lumbar region Coding Level of Care Code Global (92145) Diagnoses S/P spinal fusion Z98.1
== END 2023-11-23 15:26 | disposition home or self-care (01) ==
PROVIDERS: PCP Internal Medicine; Visit Provider Physician Assistant
DX: Z98.1 Arthrodesis status (principal)
CPT/HCPCS: 99024

== ENCOUNTER 2024-01-12 14:49 | Outpatient (AMB) | payer MEDICARE, SELFPAY ==
--- NOTE | 2024-01-12 14:59 | A.SPINEOV_ITS ---
Intake Intake Visit Reasons: 8 week f/u Intake Note: Mr. Khan is here today for 8 week F/u College Sports Assistant Required: No Allergies No Known Allergies Allergy (Verified 09/20/23 06:12) Assessment & Plan Assessment & Plan (1) S/P spinal fusion: Code(s): Z98.1 - Arthrodesis status Plan Alex is a pleasant 63-year-old male who comes in today as an 8 week follow-up after being evaluated for consistent left lower extremity pain postoperatively. He has continuously and slowly been improving since his surgery. He is now to the point where he is ambulating both with and without a cane, and is able to carry weight up to 20-30 lb at a time. He states he carried two full cases of water inside just the other day from the grocery store. He has been doing yard work with his . He has been using topical creams, ointments, and gels in order to help mitigate his symptoms. He does feel as though they are improving day by day, but very slowly. At this time Alex looks much better than he previously did, and continues to heal well although slow. He has very little reported deficits. He has increased strength in his left anterior and medial thigh. I believe there is no need for continued routine follow-up with Alex at this point. He was encouraged to continue regular visits with his primary care physician and to call the office if he feels as though he develops any new or worsening neurological symptoms. Darin Carter MD,PhD [facility] Coding Level of Care Code Global (93337) Diagnoses S/P spinal fusion Z98.1
== END 2024-01-12 15:32 | disposition home or self-care (01) ==
PROVIDERS: PCP Internal Medicine; Visit Provider Physician Assistant
DX: Z98.1 Arthrodesis status (principal)
CPT/HCPCS: 99212

== ENCOUNTER → 2024-01-12 14:49 | Outpatient (BNVA) | payer MEDICARE, SELFPAY | PROVIDERS: PCP Internal Medicine; Visit Provider Physician Assistant | DX: Z98.1 Arthrodesis status (principal) | CPT/HCPCS: 99212 ==